=== PATIENT | male | born 1955 | race Caucasian/White ===

== ENCOUNTER 2017-01-05 18:32 | Emergency (ER) | payer OTHER ==
[2017-01-05 19:13] LABS: ABSOLUTE NEUTROPHIL COUNT 8.1 K/mm3 (1.8-7.7); BASO % 0.1 % (0.2-1.0); HEMOGLOBIN 15.5 gm/l (14.0-18.0); IMM NEUT% 0.3 % (0-1); LYMPH # 1.2 (1.0-4.8); MEAN CORPUSCULAR HEMOGLOBIN 29.6 pg (27.0-31.0); MEAN CORPUSCULAR HGB CONC 33.7 g/dl (33.0-37.0); MEAN PLATELET VOLUME 12.5 fl (7.4-10.4); MONO # 0.6 (0.0-0.8); MONO % 6.1 % (4-12); NEUT % 81.5 % (43-75); PLATELET COUNT 129 K/mm3 (130-400); RED CELL DISTRIBUTION WIDTH 13.2 % (11.5-14.5)
[2017-01-05 19:30] LABS: ALB/GLOB RATIO 1.5 (>1.0); ALBUMIN 4.5 gm/dL (3.5-5.7); CALCIUM 9.4 mg/dL (8.6-10.3)
--- NOTE | 2017-01-05 19:54 | CT ---
HEAD W/O CON, C-SPINE W/O CON: 01/05/2017 6:53 PM CLINICAL HISTORY: Patient fell from ladder, approximately 7 feet. Initial encounter. COMPARISON: None. TECHNIQUE: Contiguous axial 5 mm images from skull base to the vertex were obtained without IV contrast. Sagittal and coronal reformations with bone algorithm images were also obtained at this time. CT DI:: 51.7 DLP: 887.3 FINDINGS: Infarct: None Extra axial spaces: Normal in size and morphology for the patient's age. Hemorrhage: None. Ventricular system: Normal in size and morphology for the patient's age. Basal cisterns: Normal. Cerebral parenchyma: Normal. Midline shift: None. Cerebellum: Normal. Brainstem: Normal. OTHER: Calvarium: Normal. Vascular system: Normal. Visualized Paranasal sinuses and Mastoid air cells: Clear. Visualized Orbits and regional soft tissues: Normal. IMPRESSION: No acute intracranial process. Indications: Patient fell approximately 7 feet from ladder. Initial encounter. Comparisons: None Technique: Contiguous axial 2 mm images of the cervical spine are obtained without IV contrast. Sagittal and coronal reformations are also obtained at this time. CT DI: 15.7 DLP: 319.7 Findings: Alignment: Normal Prevertebral Soft Tissue Swelling: None Bones: No fracture or dislocation Degenerative Changes: Multilevel degenerative changes are present with uncovertebral joint hypertrophy and loss of the normal intervertebral disc height. Facet sclerosis and hypertrophy are also present. Regional Soft tissues and Lung Apices: Normal Impression: Degenerative changes without fracture or dislocation. Findings were called to emergency department at approximately 1949 hours on 01/05/2017.
--- NOTE | 2017-01-05 20:24 | CT ---
Exam Type: CHEST W/O CON, ABD/PELVIS W/O CON Date and Time: 01/05/2017 6:52 PM Clinical information: Patient status post fall, approximate 7 feet from ladder. Left shoulder, back and right leg pain. Initial encounter. Comparison: None. Technique: Contiguous axial 5 mm images of the chest, abdomen and pelvis were obtained without IV contrast. Sagittal and coronal reformations with high resolution lung algorithm images were also obtained at this time. CT DI: 8.7 DLP: 608.6 FINDINGS: LUNG AND LARGE AIRWAYS: Scattered dependent atelectatic changes are noted. Lungs are otherwise clear without effusion or pneumothorax. PLEURA: within normal limits. VESSELS: Limited assessment given the lack of IV contrast and no gross abnormality is noted. HEART: normal size. No pericardial effusion. MEDIASTINUM AND NIK: within normal limits. CHEST WALL AND LOWER NECK: within normal limits. ADENOPATHY: No adenopathy is seen in the axillae, nik or mediastinum. ABDOMEN: LIVER: Multiple rounded hypodensities are scattered throughout the liver, predominantly within the medial segment left lobe near the dome. Largest lesion is seen on image 56 measuring approximately 2.4 x 1.7 cm. Additional hypoechoic density is noted just above the wlilow hepatis within the anterior segment right lobe. This is best seen on axial image 68 measuring 2.6 x 2.2 cm. Remainder of the liver is unremarkable. BILE DUCTS: normal caliber. GALLBLADDER: No calcified gallstones. Normal caliber wall. PANCREAS: within normal limits. SPLEEN: within normal limits. ADRENALS: within normal limits. KIDNEYS: within normal limits. PELVIS: REPRODUCTIVE ORGANS: no pelvic masses. URETERS: within normal limits. BLADDER: within normal limits. BOWEL: Normal caliber. Appendix is normal. MESENTERIC LYMPH NODES: No enlarged mesenteric lymph nodes. PERITONEUM: no ascites or free air, no fluid collection. VESSELS: within normal limits RETROPERITONEUM: within normal limits. ABDOMINAL WALL: within normal limits. BONES: Left transverse process fractures are noted at L1-L4. L4 fracture is nondisplaced while the remaining 3 are minimally displaced. There may be a nondisplaced fracture along the left 12th posterior rib near the costovertebral junction. There is slight anterior wedge compression of L2 of unknown chronicity. Slight wedging of T12 is also present, also of unknown chronicity. Correlation with patient's exam would be recommended. No other displaced fracture or dislocation. Well-corticated body is noted along the anterior of the left sacral coni. Findings likely relate to old fracture given this appearance. Old avulsion injury to the right initial tuberosity. IMPRESSION: Transverse process fractures involving the left first through fourth lumbar vertebra. Possible nondisplaced fracture involving the left 12th posterior rib. Additionally wedge compression deformities of L2 and T12 are present, of unknown chronicity. Correlation with patient's history and clinical status would be recommended. Probable old left sacral fracture. No visceral injury to the chest abdomen and pelvis given the lack of IV contrast. Incidental findings as above. Findings were called to Dr. Ewing at approximately 2015 hours on 01/05/2017.
[2017-01-05] MEDS ORDERED: HYDROCODONE/ACETAMINOPHEN 5/325MG TABLET ONE (20:26)
== END 2017-01-05 21:03 | disposition home or self-care (01) ==
LOC: ED 18:32
DX: S32.009A Unspecified fracture of unspecified lumbar vertebra, initial encounter for closed fracture (principal); S22.080A Wedge compression fracture of T11-T12 vertebra, initial encounter for closed fracture; R51 Headache; R07.9 Chest pain, unspecified; M54.2 Cervicalgia; R10.9 Unspecified abdominal pain; W17.89XA Other fall from one level to another, initial encounter; Y92.69 Other specified industrial and construction area as the place of occurrence of the external cause; Y99.0 Civilian activity done for income or pay
CPT/HCPCS: 83690; 85025; 80053; 74176; 72125; 70450; 71250; 99284 ×2; A9270